=== PATIENT | female | born 1940 | race Caucasian/White ===

== ENCOUNTER 2021-09-22 08:17 | Emergency (ER) | payer MEDICARE ==
[~2021-09-22] VITALS: Ht 167.6 cm; Wt 64.4 kg
[~2021-09-22 08:17] MED LIST: ARMOUR PO; HYDR25TA4 PO
--- NOTE | 2021-09-22 08:40 | NUR ---
Patient to ER bed 5 to gown for evaluation. Side rails up. Report given to Cecily WEISS.
[2021-09-22 08:41] VITALS: BP_SYST 154
--- NOTE | 2021-09-22 08:45 | NUR ---
ER at bedside examining patient.
--- NOTE | 2021-09-22 08:46 | NUR ---
FIRST CONTACT WITH PATIENT 80 YEARS OLD FEMALE WITH CHRONIC RIGHT SHOULDER PAIN, ABLE TO ROTATE, DENIES INJURY, NO HEMATOMA, NO BRUISES.
[2021-09-22 09:06] LABS: BASOPHILS % (AUTO) 0.4 % (0.0-2.0); EOSINOPHILS % (AUTO) 0.1 % (0.0-4.0); HEMATOCRIT 39.2 % (36-48); HEMOGLOBIN 13.5 g/dL (12.0-16.0); LYMPHOCYTES # (AUTO) 0.8 K/uL (1.0-5.5); LYMPHOCYTES % (AUTO) 9.3 % (20.5-51.5); MEAN CORPUSCULAR HEMOGLOBIN 32 pg (27-31); MEAN CORPUSCULAR HGB CONC 34 % (32-36); MEAN CORPUSCULAR VOLUME 92 fL (79.0-98.0); MONOCYTES # (AUTO) 0.4 K/uL (0.0-1.0); MONOCYTES % (AUTO) 5.1 % (1.7-9.3); NEUTROPHILS % (AUTO) 85.1 % (40.0-70.0); PLATELET COUNT (AUTO) 199 K/uL (130-430); RED BLOOD CELL COUNT(AUTO) 4.27 MIL/uL (4.2-6.2); RED CELL DISTRIBUTION WIDTH 12.6 % (9.0-15.0); WHITE BLOOD COUNT (AUTO) 8.3 K/uL (4.8-10.8)
[2021-09-22 09:15] LABS: ANION GAP 12 (5-15); CALCIUM 9.1 mg/dL (8.4-11.0); CREATININE 0.72 mg/dL (0.55-1.30); GLUCOSE 137 mg/dL (70-99); POTASSIUM 4.8 mmol/L (3.5-5.1); UREA NITROGEN, BLOOD 15 mg/dL (8-21)
[2021-09-22 09:20] LABS: ALANINE AMINOTRANSFERASE 59 U/L (12-78); ALBUMIN 3.9 g/dL (3.4-4.8); AMYLASE 24 U/L (0-100); ASPARTATE AMINOTRANSFERASE 49 U/L (10-37); LIPASE 48 U/L (73-393); TOTAL BILIRUBIN 0.8 mg/dL (0.0-1.0)
[2021-09-22 09:50] LABS: C-REACTIVE PROTEIN QUANT < 0.2 mg/dL (0-0.5); CHLORIDE 83 mmol/L (98-107); SODIUM SERUM 117 mmol/L (136-145)
[2021-09-22 09:58] LABS: BILIRUBIN,URINE NEGATIVE (NEGATIVE); CLARITY/URINE CLEAR (CLEAR); COLOR,URINE YELLOW (YELLOW); GLUCOSE,URINE NEGATIVE (NEGATIVE); KETONES,URINE 1+ (NEGATIVE); LEUKOCYTE ESTERASE ,URINE NEGATIVE (NEGATIVE); NITRITE, URINE NEGATIVE (NEGATIVE); PH,URINE 5.5 (5.0-8.0); PROTEIN URINE NEGATIVE (NEGATIVE); UROBILINOGEN,URINE 0.2 (0.2-1.0)
[2021-09-22] MEDS ORDERED: NACL 0.9% 1,000 ML IV ONE (10:00)
[2021-09-22 10:11] LABS: BLOOD, URINE TRACE (NEGATIVE)
[2021-09-22] MEDS ORDERED: LEVOFLOXACIN IN DEXTROSE 5 % 100 ML IV ONE (10:15)
[2021-09-22 10:19] LABS: BACTERIA,URINE FEW /HPF (None Seen); MUCUS,URINE 1+ /LPF (None Seen)
[2021-09-22] MEDS ORDERED: DILTIAZEM HCL 60 MG TABLET PO ONE (10:30)
[2021-09-22] MEDS ORDERED: dilTIAZem HCL IVP 5 MG/ML VIAL IVP ONE (10:30)
--- NOTE | 2021-09-22 10:48 | NUR ---
COVID SWAB COLLECTED/SENT.
--- NOTE | 2021-09-22 11:48 | NUR ---
PATIENT REASSESS NO ACUTE CHANGES AWAITING FOR [facility] COVID NEGATIVE.
--- NOTE | 2021-09-22 12:24 | NUR ---
REPORT GIVEN TO CHARGE NURSE MANOLO ALL QUESTIONS ANSWERED.ACCEPTING MD DR NETTA HURD. ER TO ER AWAITING FOR AMBULANCE.
[2021-09-22] MEDS ORDERED: IBUPROFEN 600 MG TABLET PO ONE (12:30)
[2021-09-22 12:45] VITALS: BP_SYST 145
--- NOTE | 2021-09-22 12:55 | NUR ---
PATIENT ALERT, ORIENTED X4 CONDITION STABLE TRANSFER TO [facility] NO PAIN. NO SOB DENIES GI DISTRESS.
--- NOTE | 2021-09-22 13:07 | NUR ---
Patient to be transferred to [facility] ER TO ER. Is being transferred due to higher level of care/INSURANCE. Receiving facility has accepting physician and available space. ER physician has signed transfer form. Patient or responsible green party has agreed to transfer and signed form. Patient belongings inventoried and will be sent with patient. Copy of nursing notes, lab reports, EKG, Physicians Orders and X-rays to be sent with patient. Report called to at receiving facility. Receiving physician is . [facility] has been called for transfer. ETA is .
== END 2021-09-22 12:45 | disposition short-term general hospital (02) ==
LOC: SED 08:17
DX: E87.1 Hypo-osmolality and hyponatremia (principal); G89.29 Other chronic pain; M25.511 Pain in right shoulder; I10 Essential (primary) hypertension; Z79.899 Other long term (current) drug therapy; Z20.822 Contact with and (suspected) exposure to COVID-19
CPT/HCPCS: 36415; 71045; 73030; 80053; 81000; 82150; 83605; 83690; 83880; 84484; 85025; 86140; 87040; 87086; 87426; 93005; 96361; 96374; 99285; J1956; J3490; J7030

== ENCOUNTER 2021-12-02 21:04 | Emergency (ER) | payer MEDICARE, SELFPAY ==
[~2021-12-02] VITALS: Ht 167.6 cm; Wt 59.9 kg
[2021-12-02 21:04] VITALS: BP_SYST 138
[2021-12-02] MEDS ORDERED: IOHEXOL 350 mgI/mL, 150 ML INFUS..BTL IV ONE (21:19)
[2021-12-02] MEDS ORDERED: METO-442 PO (21:39)
[2021-12-02] MEDS ORDERED: LISI-209 PO (21:39)
[2021-12-02] MEDS ORDERED: FURO-150 PO (21:40)
[2021-12-02] MEDS ORDERED: DABI110C PO (21:40)
[2021-12-02 22:01] LABS: BASOPHILS % (AUTO) 0.3 % (0.0-2.0); EOSINOPHILS # (AUTO) 0.1 K/uL (0.0-0.4); EOSINOPHILS % (AUTO) 0.6 % (0.0-4.0); HEMATOCRIT 34.1 % (36-48); HEMOGLOBIN 11.9 g/dL (12.0-16.0); LYMPHOCYTES # (AUTO) 0.7 K/uL (1.0-5.5); LYMPHOCYTES % (AUTO) 7.9 % (20.5-51.5); MEAN CORPUSCULAR HEMOGLOBIN 31 pg (27-31); MEAN CORPUSCULAR HGB CONC 35 % (32-36); MEAN CORPUSCULAR VOLUME 87 fL (79.0-98.0); MONOCYTES # (AUTO) 0.9 K/uL (0.0-1.0); MONOCYTES % (AUTO) 9.8 % (1.7-9.3); NEUTROPHILS # (AUTO) 7.6 K/uL (1.8-7.7); NEUTROPHILS % (AUTO) 81.4 % (40.0-70.0); PLATELET COUNT (AUTO) 302 K/uL (130-430); RED CELL DISTRIBUTION WIDTH 13.9 % (9.0-15.0); WHITE BLOOD COUNT (AUTO) 9.3 K/uL (4.8-10.8)
[2021-12-02 22:12] LABS: INR 1.3 (0.8-1.2); PROTHROMBIN TIME 12.5 SECS (9.5-12.5)
[2021-12-02 22:19] LABS: ANION GAP 12 (5-15); CREATININE 0.54 mg/dL (0.55-1.30); GLUCOSE 120 mg/dL (70-99); POTASSIUM 4.2 mmol/L (3.5-5.1); UREA NITROGEN, BLOOD 17 mg/dL (8-21)
[2021-12-02 22:27] LABS: CHLORIDE 82 mmol/L (98-107); SODIUM SERUM 118 mmol/L (136-145)
[2021-12-02 22:30] LABS: ALANINE AMINOTRANSFERASE 22 U/L (12-78); ALBUMIN 3.2 g/dL (3.4-4.8); ASPARTATE AMINOTRANSFERASE 23 U/L (10-37); TOTAL BILIRUBIN 1.1 mg/dL (0.0-1.0)
[2021-12-02] MEDS ORDERED: DABIGATRAN ETEXILATE MESYLATE 75 MG CAPSULE PO ONE ×3 (23:00→23:45)
[2021-12-02] MEDS ORDERED: fentaNYL CITRATE/PF 100 MCG/2 ML AMP IVP ONE (23:00)
[2021-12-02] MEDS ORDERED: SODIUM CHLORIDE 3% *HI-ALERT* 500 ML IV ONE (23:00)
[2021-12-02] MEDS ORDERED: PROCHLORPERAZINE EDISYLATE 10 MG/2 ML VIAL IVP ONE (23:00)
[2021-12-02] MEDS ORDERED: METOPROLOL TARTRATE 25 MG TABLET PO ONE (23:00)
[2021-12-02] MEDS ORDERED: DIGOXIN 0.125 MG TABLET PO ONE (23:00)
[2021-12-03] MEDS ORDERED: NACL 0.9% 1,000 ML IV ONE
[2021-12-03] MEDS ORDERED: ACETAMINOPHEN 500 MG TABLET ONE (00:40)
[2021-12-03] MEDS ORDERED: ACETAMINOPHEN 500 MG TABLET PO ONE (00:45)
[2021-12-03] MEDS ORDERED: MORPHINE 4 MG INJ. 4 MG/ML VIAL ONE (02:53)
[2021-12-03 03:09] VITALS: BP_SYST 138
[2021-12-03] MEDS ORDERED: MORPHINE 4 MG INJ. 4 MG/ML VIAL IVP ONE (03:15)
== END 2021-12-03 03:07 | disposition short-term general hospital (02) ==
LOC: SED 21:04
DX: G62.9 Polyneuropathy, unspecified (principal); I10 Essential (primary) hypertension; Z79.899 Other long term (current) drug therapy
CPT/HCPCS: 36415; 70450; 71045; 76376; 80053; 84484; 85025; 85610; 85730; 87426; 93005; 96361; 96374; 96375 ×2; 99285; J0780; J2270; J3010; J3490; J7030; Q9967